=== PATIENT | female | born 1965 | race American Indian/Alaskan Native ===

== ENCOUNTER 2022-02-25 13:05 | Emergency (ER) | payer OTHER ==
[2022-02-25] MEDS ORDERED: SODIUM CHLORIDE 0.9% 1000 ML 1,000 ML IV ONE ×2 (13:57→17:59)
[2022-02-25] MEDS ORDERED: MORPHINE 4 MG/1 ML INJ IV ONE (13:57)
[2022-02-25] MEDS ORDERED: ONDANSETRON 4 MG/2 ML INJ IV ONE (13:57)
[2022-02-25 14:27] LABS: Basophils % (Auto) 0.4 % (0.0-1.8); Eosinophils # (Auto) 0.1 K/mm3 (0.0-0.4); Eosinophils % (Auto) 2.1 % (0.0-4.3); Hematocrit 36.9 % (30.3-42.9); Hemoglobin 12.2 gm/dl (10.1-14.3); Lymphocytes # (Auto) 1.4 K/mm3 (1.2-5.4); Mean Corpuscular HGB Conc 33 % (30-34); Mean Corpuscular Volume 98 fl (79-97); Monocytes # (Auto) 0.5 K/mm3 (0.0-0.8); Monocytes % (Auto) 8.3 % (0.0-7.3); Platelet Count 213 K/mm3 (140-440); Red Blood Count 3.77 M/mm3 (3.65-5.03); Red Cell Distribution Width 11.7 % (13.2-15.2)
[2022-02-25 14:59] LABS: Free T4 (Free Thyroxine) 1.51 ng/dL (0.76-1.46)
[2022-02-25 15:27] LABS: Alanine Aminotransferase 51 units/L (7-56); Albumin 4.5 g/dL (3.9-5); Blood Urea Nitrogen 9 mg/dL (7-17); Calcium 9.4 mg/dL (8.4-10.2); Hemolysis Index 26
[2022-02-25 15:29] LABS: BUN/Creatinine Ratio 15
--- NOTE | 2022-02-25 16:15 | Cat Scan Report ---
CT ABDOMEN AND PELVIS WITH CONTRAST HISTORY: abd pain, hx of ulcertative colitis and ex lap. COMPARISON: None. TECHNIQUE: CT images of the abdomen and pelvis were obtained following administration of intravenous contrast. All CT scans at this location are performed using CT dose reduction for ALARA by means of automated exposure control. CONTRAST: 100 ml of intravenous contrast administered. FINDINGS: Lungs/bones: Lung bases are clear. Visualized breast implants are intact. Degenerative changes in th e spine and the pelvis with no acute osseous abnormality. Abdomen/pelvis: There is hepatic steatosis. The gallbladder, spleen, pancreas, adrenals, kidneys, an d proximal GI tract appear unremarkable. Urinary bladder is unremarkable. Uterus is surgically absent. No pelvic free fluid. There is colonic diverticulosis with no acute inflammation identified. Postoperative changes noted in the right lower quadrant. Terminal ileum appears unremarkable. Appendix is not identified but there is no pericecal i nflammatory change. IMPRESSION: 1. No acute abnormality identified. Postoperative and incidental findings as above. Signer Name: Umair Preston MD Signed: 02/25/2022 4:10 PM Workstation Name: [id number]
--- NOTE | 2022-02-25 16:30 | Emergency Department Report ---
- General Chief complaint: Weakness Stated complaint: POSS DEYDRATION ,POTASSIUM LOW Time Seen by Provider: 02/25/22 13:37 Source: patient, EMS, old records reviewed (provided by [facility]) Mode of arrival: Stretcher Limitations: No Limitations - History of Present Illness Initial comments: 56-year-old female presents from [facility] for rule out dehydration. 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 She is currently at [facility] for suicidal ideation, depression and endorsed alcohol abuse. EMS at the bedside reports that patient appeared to have unsteady gait with generalized weakness since this a.m. patient states she chronically has some difficulty walking and has good and bad days. patient complains of generalized body pain, nausea, and left-sided abdominal pain. Apparently 4 to 5 days ago patient had a potassium of 2.9 and was treated for hypokalemia. Patient states she is drinking fluids and eating. Patient apparently is chronically on oxycodone, and Xanax prior to psych admission [facility] notes reviewed and patient has been complaining of nausea and abdominal pain since February 19 with mild diarrhea and has been receiving p.o. hydration and titration of dapsone (for Ulcerative colitis). Patient does not appear to be on any scheduled or as needed narcotic medication or benzos. Severity scale (0 -10): 6 - Related Data Allergies Allergy/AdvReac Type Severity Reaction Status Date / Time No Known Allergies Allergy Unverified 02/25/22 13:21 ED Review of Systems ROS: Stated complaint: POSS DEYDRATION ,POTASSIUM LOW Other details as noted in HPI Comment: All other systems reviewed and negative ED Past Medical Hx - Past Medical History Previous Medical History?: Yes Hx Psychiatric Treatment: Yes (Depression) Hx COPD: Yes - Surgical History Past Surgical History?: Yes Hx Open Heart Surgery: Yes Additional Surgical History: HYsterctomy, Knee surgery - Social History Smoking Status: Never Smoker ED Physical Exam - General Limitations: No Limitations - Other Other exam information: General: No acute distress Head: Atraumatic Eyes: normal appearance ENT: Moist mucous membranes Neck: Normal appearance, no midline tenderness Chest: Clear to auscultation bilaterally CV: Regular rate and rhythm Abdomen: Soft, normal bowel sounds, generalized abdominal tenderness, nondistended, no rebound or guarding Back: Normal inspection Extremity: Normal inspection, full range of motion Neuro: Alert O x 3, no facial asymmetry, speech clear, no gross motor sensory deficit Psych: Appropriate behavior Skin: No rash ED Course Vital Signs 02/25/22 02/25/22 02/25/22 13:16 13:57 13:58 Temperature 98.1 F 99.5 F Pulse Rate 80 84 82 Respiratory 16 16 12 Rate Blood Pressure 126/71 Blood Pressure 140/85 [Left] O2 Sat by Pulse 95 92 Oximetry 02/25/22 02/25/22 02/25/22 14:01 14:15 14:31 Temperature Pulse Rate 83 84 92 H Respiratory 17 10 L 16 Rate Blood Pressure 126/71 139/78 130/81 Blood Pressure [Left] O2 Sat by Pulse 94 92 95 Oximetry 02/25/22 02/25/22 02/25/22 14:45 15:00 15:15 Temperature Pulse Rate 82 82 87 Respiratory 12 17 8 L Rate Blood Pressure 139/78 140/85 140/85 Blood Pressure [Left] O2 Sat by Pulse 92 94 88 Oximetry 02/25/22 02/25/22 02/25/22 15:31 15:59 16:00 Temperature Pulse Rate 86 88 Respiratory 15 Rate Blood Pressure 140/85 139/78 139/78 Blood Pressure [Left] O2 Sat by Pulse 93 86 86 Oximetry 02/25/22 17:28 Temperature Pulse Rate 82 Respiratory 14 Rate Blood Pressure Blood Pressure 135/76 [Left] O2 Sat by Pulse 92 Oximetry - Reevaluation(s) Reevaluation #1: 02/25/22 19:01 ED work-up was unremarkable. Patient reassessed and informed all her results are normal. She now states she has a headache. She apparently has had a headache the whole time but complained of pain all over at time of my evaluation. CT head ordered and Toradol ordered for additional pain relief. Patient is a history of chronic pain with pain management and is not currently taking narcotics at [facility] ED Medical Decision Making - Lab Data Result diagrams: 02/25/22 14:17 02/25/22 14:17 Lab Results 02/25/22 02/25/22 02/25/22 Range/Units 14:17 14:17 14:17 WBC 5.8 (4.5-11.0) K/mm3 RBC 3.77 (3.65-5.03) M/mm3 Hgb 12.2 (10.1-14.3) gm/dl Hct 36.9 (30.3-42.9) % MCV 98 H (79-97) fl MCH 32 (28-32) pg MCHC 33 (30-34) % RDW 11.7 L (13.2-15.2) % Plt Count 213 (140-440) K/mm3 Lymph % (Auto) 24.0 (13.4-35.0) % [place] % (Auto) 8.3 H (0.0-7.3) % Eos % (Auto) 2.1 (0.0-4.3) % Baso % (Auto) 0.4 (0.0-1.8) % Lymph # (Auto) 1.4 (1.2-5.4) K/mm3 Dup[place] # (Auto) 0.5 (0.0-0.8) K/mm3 Eos # (Auto) 0.1 (0.0-0.4) K/mm3 Baso # (Auto) 0.0 (0.0-0.1) K/mm3 Seg Neutrophils % 65.2 (40.0-70.0) % Seg Neutrophils # 3.8 (1.8-7.7) K/mm3 Sodium 137 (137-145) mmol/L Potassium 4.4 (3.6-5.0) mmol/L Chloride 100.8 (98-107) mmol/L Carbon Dioxide 25 (22-30) mmol/L Anion Gap 16 mmol/L BUN 9 (7-17) mg/dL Creatinine 0.6 (0.6-1.2) mg/dL Estimated GFR > 60 ml/min BUN/Creatinine Ratio 15 % Glucose 93 (65-100) mg/dL Calcium 9.4 (8.4-10.2) mg/dL Magnesium 2.20 (1.7-2.3) mg/dL Total Bilirubin 1.10 (0.1-1.2) mg/dL AST 34 (5-40) units/L ALT 51 (7-56) units/L Alkaline Phosphatase 51 (35-129) units/L Total Protein 6.6 (6.3-8.2) g/dL Albumin 4.5 (3.9-5) g/dL Albumin/Globulin Ratio 2.1 % TSH 1.890 (0.270-4.200) mlU/mL Free T4 1.51 H (0.76-1.46) ng/dL Urine Color (Yellow) Urine Turbidity (Clear) Urine pH (5.0-7.0) Ur Specific Fork (1.003-1.030) Urine Protein (Negative) mg/dL Urine Glucose (UA) (Negative) mg/dL Urine Ketones (Negative) mg/dL Urine Blood (Negative) Urine Nitrite (Negative) Urine Bilirubin (Negative) Urine Urobilinogen (<2.0) mg/dL Ur Leukocyte Esterase (Negative) Urine WBC (Auto) (0.0-6.0) /HPF Urine RBC (Auto) (0.0-6.0) /HPF Urine Opiates Screen Urine Methadone Screen Ur Barbiturates Screen Ur Phencyclidine Scrn Ur Amphetamines Screen U Benzodiazepines Scrn Urine Cocaine Screen U Marijuana (THC) Screen 02/25/22 02/25/22 Range/Units 17:28 Unknown WBC (4.5-11.0) K/mm3 RBC (3.65-5.03) M/mm3 Hgb (10.1-14.3) gm/dl Hct (30.3-42.9) % MCV (79-97) fl MCH (28-32) pg MCHC (30-34) % RDW (13.2-15.2) % Plt Count (140-440) K/mm3 Lymph % (Auto) (13.4-35.0) % [place] % (Auto) (0.0-7.3) % Eos % (Auto) (0.0-4.3) % Baso % (Auto) (0.0-1.8) % Lymph # (Auto) (1.2-5.4) K/mm3 [place] # (Auto) (0.0-0.8) K/mm3 Eos # (Auto) (0.0-0.4) K/mm3 Baso # (Auto) (0.0-0.1) K/mm3 Seg Neutrophils % (40.0-70.0) % Seg Neutrophils # (1.8-7.7) K/mm3 Sodium (137-145) mmol/L Potassium (3.6-5.0) mmol/L Chloride (98-107) mmol/L Carbon Dioxide (22-30) mmol/L Anion Gap mmol/L BUN (7-17) mg/dL Creatinine (0.6-1.2) mg/dL Estimated GFR ml/min BUN/Creatinine Ratio % Glucose (65-100) mg/dL Calcium (8.4-10.2) mg/dL Magnesium (1.7-2.3) mg/dL Total Bilirubin (0.1-1.2) mg/dL AST (5-40) units/L ALT (7-56) units/L Alkaline Phosphatase (35-129) units/L Total Protein (6.3-8.2) g/dL Albumin (3.9-5) g/dL Albumin/Globulin Ratio % TSH (0.270-4.200) mlU/mL Free T4 (0.76-1.46) ng/dL Urine Color Yellow (Yellow) Urine Turbidity Clear (Clear) Urine pH 6.0 (5.0-7.0) Ur Specific [place]ork 1.004 (1.003-1.030) Urine Protein <15 mg/dl (Negative) mg/dL Urine Glucose (UA) Neg (Negative) mg/dL Urine Ketones Neg (Negative) mg/dL Urine Blood Neg (Negative) Urine Nitrite Neg (Negative) Urine Bilirubin Neg (Negative) Urine Urobilinogen < 2.0 (<2.0) mg/dL Ur Leukocyte Esterase Neg (Negative) Urine WBC (Auto) 1.0 (0.0-6.0) /HPF Urine RBC (Auto) 1.0 (0.0-6.0) /HPF Urine Opiates Screen Negative Urine Methadone Screen Negative Ur Barbiturates Screen Negative Ur Phencyclidine Scrn Negative Ur Amphetamines Screen Negative U Benzodiazepines Scrn Negative Urine Cocaine Screen Negative U Marijuana (THC) Screen Negative - Radiology Data Radiology results: report reviewed CT ABDOMEN AND PELVIS WITH CONTRAST HISTORY: abd pain, hx of ulcertative colitis and ex lap. COMPARISON: None. TECHNIQUE: CT images of the abdomen and pelvis were obtained following administration of intravenous contrast. All CT scans at this location are performed using CT dose reduction for ALARA by means of automated exposure control. CONTRAST: 100 ml of intravenous contrast administered. FINDINGS: Lungs/bones: Lung bases are clear. Visualized breast implants are intact. Degenerative changes in the spine and the pelvis with no acute osseous abnormality. Abdomen/pelvis: There is hepatic steatosis. The gallbladder, spleen, pancreas, adrenals, kidneys, and proximal GI tract appear unremarkable. Urinary bladder is unremarkable. Uterus is surgically absent. No pelvic free fluid. There is colonic diverticulosis with no acute inflammation identified. Postoperative changes noted in the right lower quadrant. Terminal ileum appears unremarkable. Appendix is not identified but there is no pericecal inflammatory change. IMPRESSION: 1. No acute abnormality identified. Postoperative and incidental findings as above. CT head/brain wo con INDICATION: headache, gen weakness. TECHNIQUE: Routine CT head. All CT scans at this location are performed using CT dose reduction for ALARA by means of automated exposure control. COMPARISON: None. FINDINGS: Intracranial: Sanchez-white matter differentiation is maintained. No intracranial hemorrhage. No extra axial collection. No hydrocephalus. No herniation. Sinuses: Paranasal sinuses and mastoid air cells are essentially clear. Orbits: Globes are intact. Calvarium: No acute fracture. IMPRESSION: 1. No acute intracranial abnormality. - Medical Decision Making 56-year-old female presents to the hospital generalized weakness and possible dehydration. With the ED work-up there is not any laboratory or clinical signs of dehydration. Patient was treated with IV fluids. Patient also has generalized pain and has a history of chronic pain, pain management, and oxycodone and Xanax use. Does not appear that she is receiving oxycodone or Xanax at the [facility]. Patient was treated with pain medication and an anti-inflammatory medication here in the ED. Her imaging studies were also unremarkable. She has normal vital signs. She has generalized weakness without focality. Patient will be discharged back to [facility] Critical Care Time: No Critical care attestation.: If time is entered above; I have spent that time in minutes in the direct care of this critically ill patient, excluding procedure time. ED Disposition Clinical Impression: Generalized weakness, Chronic pain, Depression Disposition: [address] [place] [address] Is pt being admited?: No Does the pt Need Aspirin: No Condition: Stable Instructions: Chronic Pain, Adult, Weakness, [id number] Additional Instructions: Continue current medications as prescribed. Return if symptoms worsen as indicated by your discharge instructions. Referrals: PRIMARY CARE, [Primary Care Provider] - 3-5 Days Time of Disposition: 20:22
[2022-02-25 17:59] LABS: Amphetamine Screen,Urine Negative; Benzodiazepines Screen,Urine Negative; Cannabinoid Screen,Urine Negative; Cocaine Screen,Urine Negative; Methadone Screen,Urine Negative; Opiate Screen,Urine Negative
[2022-02-25 18:33] LABS: Bilirubin,Urine NEG (Negative); Blood,Urine NEG (Negative); Color,Urine Yellow (Yellow); Protein,Urine <15 mg/dL mg/dL (Negative); Urobilinogen,Urine < 2.0 mg/dL (<2.0)
[2022-02-25] MEDS ORDERED: KETOROLAC 30 MG/1 ML INJ IV ONE (19:00)
[2022-02-25] MEDS ORDERED: oxyCODONE /ACETAMINOPHEN 5-325MG TAB PO ONE (19:22)
--- NOTE | 2022-02-25 20:16 | Cat Scan Report ---
CT head/brain wo con INDICATION: headache, gen weakness. TECHNIQUE: Routine CT head. All CT scans at this location are performed using CT dose reduction for A ANTONY by means of automated exposure control. COMPARISON: None. FINDINGS: Intracranial: Sanchez-white matter differentiation is maintained. No intracranial hemorrhage. No extra a xial collection. No hydrocephalus. No herniation. Sinuses: Paranasal sinuses and mastoid air cells are essentially clear. Orbits: Globes are intact. Calvarium: No acute fracture. IMPRESSION: 1. No acute intracranial abnormality. Signer Name: Dane Dewitt MD Signed: 02/25/2022 8:12 PM Workstation Name: [id number]
[2022-02-25 20:42] VITALS: BP 135/80
== END 2022-02-25 23:13 ==
LOC: ED 13:05
DX: F32.9 Major depressive disorder, single episode, unspecified (principal); G89.29 Other chronic pain; R53.1 Weakness; J44.9 Chronic obstructive pulmonary disease, unspecified; R10.9 Unspecified abdominal pain; Z90.710 Acquired absence of both cervix and uterus; Z98.890 Other specified postprocedural states; Z79.899 Other long term (current) drug therapy
CPT/HCPCS: 36415; 70450; 74177; 80053; 80307; 81001; 83735; 84439; 84443; 85025; 96361; 96374; 96375; 99285; J1885; J2270; J2405; J7030; Q9967; 96367